=== PATIENT | female | born 1990 | race Caucasian/White ===

== ENCOUNTER 2017-03-13 18:08 | Emergency (ER) | payer OTHER ==
[2017-03-13] MEDS ORDERED: NS 0.9% 1000 ML* 1,000 ML IV ONE (20:15)
[2017-03-13] MEDS ORDERED: Acetaminophen TAB* 325 MG PO ONE (20:15)
[2017-03-13 20:50] LABS: Hematocrit 37 % (35-47); Hemoglobin 12.3 g/dl (12.0-16.0); Mean Corpuscular HGB Conc 34 g/dl (31-36); Mean Corpuscular Hemoglobin 30 pg (27-31); Mean Corpuscular Volume 90 fL (80-97); Mean Platelet Volume 9 um3 (7.4-10.4); Red Blood Count 4.07 10^6/ul (4.0-5.4); Red Cell Distribution Width 14 % (10.5-15)
[2017-03-13 20:53] LABS: Add Diff/Slide Review? Manual Diff Added; Comments Flag Yes
[2017-03-13 21:01] LABS: ALT 20 U/L (7-52); AST 21 U/L (13-39); Albumin 3.9 g/dL (3.2-5.2); Alkaline Phosphatase 44 U/L (34-104); Anion Gap 6 mmol/L (2-11); BUN/Creatinine Ratio 8.8 (8-20); Blood Urea Nitrogen 6 mg/dL (6-24); CO2 Carbon Dioxide 25 mmol/L (22-32); Calcium 8.8 mg/dL (8.6-10.3); Chloride 107 mmol/L (101-111); EGFR African American 133.5 (>60); EGFR Non-African American 103.8 (>60); Globulin 2.9 g/dL (2-4); Glucose 84 mg/dL (70-100); Potassium 3.6 mmol/L (3.5-5.0); Sodium 138 mmol/L (133-145); Total Protein 6.8 g/dL (6.4-8.9)
[2017-03-13 21:29] LABS: Add Path Review? YES; Eosinophils % 3 % (0-6); Neutrophil % 59 % (38-83); RBC Morphology Normal (Normal); Reactive Lymph % 1 % (0-6)
[2017-03-13 21:42] LABS: Urine Bacteria Absent (Absent); Urine Bilirubin Negative (Negative); Urine Glucose Negative (Negative); Urine Nitrite Negative (Negative)
[2017-03-13 22:00] VITALS: BP 118/61
--- NOTE | 2017-03-29 14:52 | ED ---
Cheryl Garcia Thomas, scribed for Cyndee Schulte MD on 03/13/17 at 2039 . GI/ HPI - HPI Summary HPI Summary: The pt is a 26 y/o F accompanied by her fianc and presenting to the ED c/o vaginal bleeding that began yesterday. LNMP was 02/20/17 and the patient has regular periods. She expects her period in two weeks. Her current level of bleeding is described as moderate to heavy and more than typical menstrual bleeding. She has been trying to get . Pt additionally c/o L-sided headache (for days), dizziness characterized as lightheadedness for the last three days, and ear pain. G=5, P=4, A=1. She has a history of anemia during her pregnancies. PMHx significant for a ruptured ovarian cyst with internal hemorrhage. She is a current smoker. She has a FHx of DM. - History of Current Complaint Chief Complaint: EDVaginalBleeding Time Seen by Provider: 03/13/17 19:27 Stated Complaint: VAGINAL BLEEDING,DIZZINESS Hx Obtained From: Patient, Family/Gradall Operator - fiance in the room Onset/Duration: Started Days Ago - onset yesterday, Still Present Timing: Constant Current Severity: Moderate - more than normal menstrual period Pain Intensity: 0 Associated Signs and Symptoms: Positive: Dizziness - characterized as lightheadedness for the last three days, Other: - L-sided headache, ear pain Additional Signs & Symptoms: Positive: Vaginal Bleeding - onset yesterday Aggravating Factor(s): Nothing Alleviating Factor(s): Nothing - Allergy/Home Medications Allergies/Adverse Reactions: Allergies Allergy/AdvReac Type Severity Reaction Status Date / Time No Known Allergies Allergy Verified 01/21/13 18:22 PMH/Surg Hx/FS Hx/Imm Hx Previously Healthy: No Cardiovascular History: Denies: Hx Myocardial Infarction History: Reports: Other Problems/Disorders - Hx ruptured ovarian cyst - Surgical History Surgery Procedure, Year, and Place: None Infectious Disease History: No Infectious Disease History: Denies: Traveled Outside the [place] in Last 30 Days - Family History Known Family History: Positive: Diabetes - Social History Lives: With Family - with fiance Alcohol Use: Occasionally Hx Substance Use: No Substance Use Type: Reports: None Hx Tobacco Use: Yes Smoking Status (MU): Heavy Every Day Tobacco Smoker Review of Systems Negative: Fever Positive: Ear Ache Positive: other - Vaginal bleeding onest yesterday Neurological: Other - Dizziness characterized as lightheadedness for the last three days Positive: Headache - L-sided, "for days"0 All Other Systems Reviewed And Are Negative: Yes Physical Exam Triage Information Reviewed: Yes Vital Signs On Initial Exam: Initial Vitals Temp Pulse Resp BP Pulse Ox 98.2 F 60 20 120/72 100 03/13/17 18:47 03/13/17 18:47 03/13/17 18:47 03/13/17 18:47 03/13/17 18:47 Vital Signs Reviewed: Yes Appearance: Positive: Well-Appearing, No Pain Distress Skin: Positive: Warm, Skin Color Reflects Adequate Perfusion, Dry Eyes: Positive: EOMI, BREN ENT: Positive: Pharynx normal, TMs normal Neck: Positive: Supple, Nontender Respiratory/Lung Sounds: Positive: Clear to Auscultation, Breath Sounds Present. Negative: Rales, Rhonchi, Wheezes Cardiovascular: Positive: RRR, Other - No gallop. Negative: Murmur, Rub Abdomen Description: Positive: Nontender, Soft, Other: - No rebound. Negative: Distended, Guarding Bowel Sounds: Positive: Present Musculoskeletal: Positive: Strength/ROM Intact. Negative: Edema Left, Edema Right Neurological: Positive: Sensory/Motor Intact, Alert, Oriented to Person Place, Time, CN Intact II-III Psychiatric: Positive: Affect/Mood Appropriate Diagnostics - Vital Signs Vital Signs Temp Pulse Resp BP Pulse Ox 03/13/17 18:47 98.2 F 60 20 120/72 100 - Laboratory Lab Results: Lab Results 03/13/17 03/13/17 03/13/17 Range/Units 20:35 20:35 21:30 WBC 9.0 (3.5-10.8) 10^3/ul RBC 4.07 (4.0-5.4) 10^6/ul Hgb 12.3 (12.0-16.0) g/dl Hct 37 (35-47) % MCV 90 (80-97) fL MCH 30 (27-31) pg MCHC 34 (31-36) g/dl RDW 14 (10.5-15) % Plt Count 258 (150-450) 10^3/ul MPV 9 (7.4-10.4) um3 Absolute Neuts (auto) 4.0 (1.5-7.7) 10^3/ul Absolute Lymphs (auto) 3.9 (1.0-4.8) 10^3/ul Absolute Monos (auto) 0.6 (0-0.8) 10^3/ul Absolute Eos (auto) 0.2 (0-0.6) 10^3/ul Absolute Basos (auto) 0.1 (0-0.2) 10^3/ul Absolute Nucleated RBC 0 10^3/ul Neutrophils % 59 (38-83) % Lymphocytes % 35 (25-47) % Reactive Lymphs % 1 (0-6) % Monocytes % 2 (0-13) % Eosinophils % 3 (0-6) % Normal RBC Morphology Normal (Normal) Hem Pathologist Commnt Sodium 138 (133-145) mmol/L Potassium 3.6 (3.5-5.0) mmol/L Chloride 107 (101-111) mmol/L Carbon Dioxide 25 (22-32) mmol/L Anion Gap 6 (2-11) mmol/L BUN 6 (6-24) mg/dL Creatinine 0.68 (0.51-0.95) mg/dL Est GFR ( Amer) 133.5 (>60) Est GFR (Non-Af Amer) 103.8 (>60) BUN/Creatinine Ratio 8.8 (8-20) Glucose 84 (70-100) mg/dL Calcium 8.8 (8.6-10.3) mg/dL Total Bilirubin 0.30 (0.2-1.0) mg/dL AST 21 (13-39) U/L ALT 20 (7-52) U/L Alkaline Phosphatase 44 (34-104) U/L Total Protein 6.8 (6.4-8.9) g/dL Albumin 3.9 (3.2-5.2) g/dL Globulin 2.9 (2-4) g/dL Albumin/Globulin Ratio 1.3 (1-3) Beta HCG, Quant < 0.60 mIU/mL Urine Color Straw Urine Appearance Clear Urine pH 7.0 (5-9) Ur Specific [place] 1.002 L (1.010-1.030) Urine Protein Negative (Negative) Urine Ketones Negative (Negative) Urine Blood 2+ H (Negative) Urine Nitrate Negative (Negative) Urine Bilirubin Negative (Negative) Urine Urobilinogen Negative (Negative) Ur Leukocyte Esterase Negative (Negative) Urine WBC (Auto) Absent (Absent) Urine RBC (Auto) Absent (Absent) Ur Squamous Epith Cells Present H (Absent) Urine Bacteria Absent (Absent) Urine Glucose Negative (Negative) Result Diagrams: 03/13/17 20:35 03/13/17 20:35 Lab Statement: Any lab studies that have been ordered have been reviewed, and results considered in the medical decision making process. GIGU Course/Dx - Course Course Of Treatment: pt kindly refused a pelvic exam - Diagnoses Provider Diagnoses: Vaginal bleeding Discharge - Discharge Plan Condition: Stable Disposition: HOME Patient Education Materials: Dysfunctional Uterine Bleeding (ED) Referrals: Wayne CHAMBERS,Jean-Claude Martinez [Primary Care Provider] - 3 Days The documentation as recorded by the Cheryl zuleta Thomas accurately reflects the service I personally performed and the decisions made by , Cyndee Schulte MD.
== END 2017-03-13 22:03 | disposition home or self-care (01) ==
LOC: ED 18:08
DX: N93.9 Abnormal uterine and vaginal bleeding, unspecified (principal); F17.210 Nicotine dependence, cigarettes, uncomplicated; R51 Headache; H92.09 Otalgia, unspecified ear
CPT/HCPCS: 36415; 80053; 81003; 81015; 84702; 85025; 85060; 99282; A9270-GY

== ENCOUNTER 2018-11-30 12:09 | Emergency (ER) | payer OTHER ==
[2018-11-30] MEDS ORDERED: Hemorrhoidal OINT PR ONE (13:47)
[2018-11-30] MEDS ORDERED: oxyCODONE/Acetamin 5/325 MG* TAB PO ONE (13:56)
[2018-11-30 14:16] VITALS: BP 126/77
--- NOTE | 2018-11-30 14:26 | ED ---
Skin Complaint - HPI Summary HPI Summary: Patient's 28-year-old female who presents to the ED with a possible hemorrhoid. She states she has been on Augmentin for a sinus infection and in the course of the first few days she developed profuse diarrhea. This has since improved. She states the diarrhea was non-malodorous. However, yesterday she developed "severe pain to the rectum." History of hemorrhoids, but no history of thrombosed hemorrhoids. She states her hemorrhoids have always been external and has been present with . She is at this point, however is only 7 weeks along. This was confirmed by ultrasound last week and she has a follow-up ultrasound on of this week, in 2 days. She denies any problems with the . She states she feels her hemorrhoids were secondary to her diarrhea. Denies any blood in the stool. Denies any other pain. Denies fevers, sweats, chills. - History of Current Complaint Chief Complaint: EDRashSkinAbscess Time Seen by Provider: 11/30/18 12:33 Stated Complaint: ABCESS PER PT Hx Obtained From: Patient Onset/Duration: Started Days Ago Skin Exposure Onset/Duration: Days Ago Timing: Constant Onset Severity: Moderate Current Severity: Moderate Pain Intensity: 10 Pain Scale Used: 0-10 Numeric Skin Location: Other: - hemorrhoid Character: Pain, Redness, Raised, Painful Aggravating Symptom(s): Nothing Alleviating Symptom(s): Nothing Associated Signs & Symptoms: Negative - Allergy/Home Medications Allergies/Adverse Reactions: Allergies Allergy/AdvReac Type Severity Reaction Status Date / Time amoxicillin Allergy Severe Diarrhea Verified 11/30/18 13:28 PMH/Surg Hx/FS Hx/Imm Hx Previously Healthy: Yes Endocrine/Hematology History: Denies: Hx Anticoagulant Therapy, Hx Blood Disorders, Hx Anemia, Hx Unexplained Bleeding Cardiovascular History: Denies: Hx Myocardial Infarction History: Reports: Other Problems/Disorders - Hx ruptured ovarian cyst - Surgical History Surgery Procedure, Year, and Place: None - Immunization History Hx Pertussis Vaccination: No Immunizations Up to Date: Yes Infectious Disease History: No Infectious Disease History: Denies: Traveled Outside the [place] in Last 30 Days - Family History Known Family History: Positive: Diabetes - Social History Occupation: Employed Full-time Lives: With Family Alcohol Use: None Hx Substance Use: No Substance Use Type: Reports: None Hx Tobacco Use: Yes Smoking Status (MU): Light Every Day Tobacco Smoker Physical Exam Vital Signs On Initial Exam: Initial Vitals Temp Pulse Resp BP Pulse Ox 99.2 F 93 16 132/91 99 11/30/18 12:20 11/30/18 12:20 11/30/18 12:20 11/30/18 12:20 11/30/18 12:20 Diagnostics - Vital Signs Vital Signs Temp Pulse Resp BP Pulse Ox 11/30/18 14:16 98.1 F 93 16 126/77 98 11/30/18 12:20 99.2 F 93 16 132/91 99 - Laboratory Lab Statement: Any lab studies that have been ordered have been reviewed, and results considered in the medical decision making process. Course/Dx - Course Course Of Treatment: On physical examination, patient has an apparent large external hemorrhoid with no thrombosis present. It appears to be extremely inflamed and slightly ecchymotic. Palpated around anus and internal/rectum and no evidence of perianal or if ishchial or perirectal abscess evident. No fevers , sweats, chills. no surrounding erythema. Discussed with Dr. Lee to obtain recommendations for hemorroid cream safe in . Hydrocortisone and benzocaine in small doses (twice daily each) and otherwise preparation H. Percocet also given to patient. Discussed with the patient that hydrocortisone in benzocaine may cross placenta and caution in is advise. Patient understands. Patient also understands risks involved with Percocet use and please this wisely. She understands to not take Tylenol in addition to Percocet. She is given a surgical follow-up. Discharge - Discharge Plan Condition: Stable Disposition: HOME Prescriptions: Benzocaine [Americaine] 20 % AL BID PRN #1 oin PRN Reason: Pain Hydrocortisone 2.5% CREAM(NF) 1 applic TOPICAL BID #1 tube oxyCODONE/Acetamin 5/325 MG* [Percocet 5/325 TAB*] 1 tab PO Q6H PRN #12 tab MDD 4 PRN Reason: Pain Patient Education Materials: Hemorrhoids (ED) Referrals: Odilia South MD [Medical Doctor] - Wayne CHAMBERS,Jean-Claude Martinez [Primary Care Provider] - Additional Instructions: Benzocaine - up to twice daily - this may burn after applied but works as an analgesic Hydrocortisone cream - twice daily Use whichever you prefer which improves your symptoms - however you can apply something every 2 hours and use these intermittently Percoset up to four times daily as needed for pain - do not take tylenol while taking this medication Continue with [facility] and [facility] [place] Disposition and Condition Condition: STABLE Disposition: Home
== END 2018-11-30 14:16 | disposition home or self-care (01) ==
LOC: ED 12:09
DX: O22.41 Hemorrhoids in pregnancy, first trimester (principal); Z3A.01 Less than 8 weeks gestation of pregnancy; Z88.0 Allergy status to penicillin; F17.200 Nicotine dependence, unspecified, uncomplicated
CPT/HCPCS: 99282; A9270-GY

== ENCOUNTER 2019-03-12 20:11 | Emergency (ER) | payer OTHER ==
[2019-03-12 20:20] VITALS: BP 131/90
== END 2019-03-12 22:04 | disposition left against medical advice (07) ==
LOC: ED 20:11
DX: M54.2 Cervicalgia (principal); M54.9 Dorsalgia, unspecified; V89.2XXA Person injured in unspecified motor-vehicle accident, traffic, initial encounter; Y92.410 Unspecified street and highway as the place of occurrence of the external cause; Z53.21 Procedure and treatment not carried out due to patient leaving prior to being seen by health care provider